=== PATIENT | male | born 1960 | race Caucasian/White ===

== ENCOUNTER 2021-11-07 10:44 | Observation (INO) ==
[2021-11-07] MEDS ORDERED: Ondansetron 4 MG/2 ML VIAL IVP ONE ×2 (11:01→15:43)
[2021-11-07] MEDS ORDERED: 0.9 % Sodium Chloride 1,000 ML IV ONE ×2 (11:01→13:35)
[2021-11-07 11:14] LABS: Basophils # 0.2 K/mcL (0.0-0.2); Basophils % 0.6 %; Eosinophils % 0.1 %; Hemoglobin 16.9 g/dL (12.9-16.9); Immature Granulocytes % 2.7 % (0-4); Lymphocytes # 1.2 K/mcL (0.6-4.6); Lymphocytes % 4.9 %; Mean Corpuscular HGB Conc 32.5 g/dL (31.6-35.5); Mean Corpuscular Hemoglobin 31.5 pg (28.0-33.3); Mean Corpuscular Volume 96.8 fL (83.0-100.0); Monocytes # 0.8 K/mcL (0.0-1.3); Monocytes % 3.4 %; Platelet Count 392 K/mcL (140-400); Red Blood Count 5.37 M/mcL (4.19-5.50); Red Cell Distribution Width 13.7 % (11.5-14.5); Segmented Neutrophils % 88.3 %; White Blood Count 24.6 K/mcL (4.3-11.1)
[2021-11-07 11:26] LABS: Neutrophils # 21.7 K/mcL (1.6-8.9); Prothrombin Time 11.6 Seconds (9.4-12.1)
[2021-11-07 11:29] LABS: Activated Partial Thrombo Time 34.4 Seconds (26.0-36.0)
[2021-11-07 11:34] LABS: Albumin 5.6 g/dL (3.5-5.7); Albumin/Globulin Ratio 1.1 (1.1-2.2); Bilirubin,Total 0.7 mg/dL (0.3-1.0); Globulin 5.1 g/dL (2.4-3.5); Potassium 3.9 mEq/L (3.5-5.1); Total Protein 10.7 g/dL (6.4-8.9)
[2021-11-07 11:38] LABS: Troponin I 0.03 ng/mL (< 0.04)
[2021-11-07 11:45] LABS: Platelet Estimate Normal (Normal)
[2021-11-07 11:59] VITALS: O2SAT 95
[2021-11-07] MEDS ORDERED: levoFLOXacin 750 MG/150 ML 750 MG/150 ML BAG IVPB STA (12:08)
[2021-11-07] MEDS ORDERED: Morphine Sulfate 2 MG/ML SYRINGE IVP ONE (12:42)
[2021-11-07] MEDS ORDERED: Naloxone 0.4 MG/ML INJ IVP PRN (13:57)
[2021-11-07] MEDS ORDERED: Ondansetron 4 MG/2 ML VIAL IVP PRN (13:57)
[2021-11-07] MEDS ORDERED: 0.9 % Sodium Chloride 1,000 ML IVC SCH ×2 (14:00→16:28)
[2021-11-07] MEDS ORDERED: *HR* LORazepam 1 MG TABLET PO PRN (15:24)
[2021-11-07] MEDS ORDERED: MetroNIDAZOLE 500 MG/100 ML 500 MG/100 ML BAG IVPB SCH (16:00)
[2021-11-07 16:18] LABS: Calcium 9.1 mg/dL (8.6-10.3); Potassium 3.6 mEq/L (3.5-5.1)
[2021-11-07 16:47] VITALS: BP 102/72; PULSE 121; RESP 20; TEMP 98
[2021-11-07] MEDS ORDERED: *HR* Heparin 5,000 UNIT/ML VIAL SQ SCH (18:00)
[2021-11-09] MEDS ORDERED: levoFLOXacin 500 MG/100 ML 500 MG/100 ML BAG IVPB SCH (12:00)
== END 2021-11-07 18:53 | disposition short-term general hospital (02) ==
LOC: EMEROOPIK 10:44 → INPPIK 10:44
PROVIDERS: ADMIT Internal Medicine; ATTEND Internal Medicine